=== PATIENT | male | born 1985 | race Asian ===

== ENCOUNTER 2017-09-20 14:08 | Emergency (ER) | payer SELFPAY ==
[2017-09-20] MEDS ORDERED: NS 1,000 ML IV ONE (14:21)
--- NOTE | 2017-09-20 14:27 | EDPHY ---
HPI/HX/ROS/PE/MDM Narrative: CHIEF COMPLAINT: Chest pain HPI: This patient is a Lao-speaking 32 year old male arriving via EMS complaining of abdominal pain and a transient alteration of awareness beginning after lunch today. Following lunch, he returned to work and began to feel like his mind was blank, and he could not remember anything. He went to his animal husbandry manager to see if he could go home, and his animal husbandry manager referred him to the emergency department. The patient suspects there may have been something unusual in his lunch. He currently feels his mind is returning to normal, but complains of a burning sensation in his abdomen. He denies having similar symptoms in the past. He denies marijuana consumption. HPI obtained by Lao phone per diem interpreter. REVIEW OF SYSTEMS: Aside from elements discussed in the HPI, a comprehensive 10-point review of systems was reviewed and is negative. PMH: Denies. SOCIAL HISTORY: Lao-speaking. Originally from [facility]. Works in [employer]. PHYSICAL EXAM: General:Patient is alert, in no acute distress. ENT:Eyes are normal to inspection. ENT inspection normal. Neck: Normal inspection. Full range of motion. Respiratory:No respiratory distress. Breath sounds normal bilaterally. Cardiovascular: Regular tachycardia. Strong peripheral pulses. Normal cap refill. Abdomen:The abdomen is nontender to palpation. There are no peritoneal signs. There are normal bowel sounds. Back: Normal to inspection. No tenderness to palpation. Skin: Normal color. No rash. Warm and dry. Extremities: Normal appearance. Full range of motion. Neuro: Oriented x3. Normal motor function. Normal sensory function. ED Course: 32 year old male presents with burning abdominal pain, a sensation of altered awareness, and reported chest pain. Exam reveals regular tachycardia. Plan for EKG, labs including CBC, chemistries, Troponin, and tox screen. EKG was ordered and interpreted by myself. Please see [employer] system for official reading. Sinus tachycardia. 15:50 Reviewed laboratory results. Tox screen is positive for marijuana. Chemistries and troponin pending at this time. Troponin negative. Plan to discharge home in good condition. Follow up and return precautions discussed. The patient is comfortable with this plan. MDM: This patient presents with altered mental status that seemed very suspicious for marijuana ingestion. This theory was confirmed by utox, and patient now states that he inadvertently ate a brownie. I see no signs of other medical emergency. - Data Points Laboratory Results: Laboratory Results 09/20/17 15:30 09/20/17 15:30 09/20/17 09/20/17 09/20/17 15:30 15:30 15:30 WBC 12.15 10^3/uL H 10^3/uL (3.80-9.50) RBC 5.21 10^6/uL 10^6/uL (4.40-6.38) Hgb 16.5 g/dL g/dL (13.7-17.5) Hct 47.4 % % (40.0-51.0) MCV 91.0 fL fL (81.5-99.8) MCH 31.7 pg pg (27.9-34.1) MCHC 34.8 g/dL g/dL (32.4-36.7) RDW 12.7 % % (11.5-15.2) Plt Count 166 10^3/uL 10^3/uL (150-400) MPV 9.9 fL fL (8.7-11.7) Neut % (Auto) 86.4 % H % (39.3-74.2) Lymph % (Auto) 7.6 % L % (15.0-45.0) Merrick % (Auto) 5.0 % % (4.5-13.0) Eos % (Auto) 0.6 % % (0.6-7.6) Baso % (Auto) 0.2 % L % (0.3-1.7) Nucleat RBC Rel Count 0.0 % % (0.0-0.2) Absolute Neuts (auto) 10.49 10^3/uL H 10^3/uL (1.70-6.50) Absolute Lymphs (auto) 0.92 10^3/uL L 10^3/uL (1.00-3.00) Absolute Monos (auto) 0.61 10^3/uL 10^3/uL (0.30-0.80) Absolute Eos (auto) 0.07 10^3/uL 10^3/uL (0.03-0.40) Absolute Basos (auto) 0.03 10^3/uL 10^3/uL (0.02-0.10) Absolute Nucleated RBC 0.00 10^3/uL 10^3/uL (0-0.01) Immature Gran % 0.2 % % (0.0-1.1) Immature Gran # 0.03 10^3/uL 10^3/uL (0.00-0.10) Sodium 144 mEq/L mEq/L (134-144) Potassium 3.7 mEq/L mEq/L (3.5-5.2) Chloride 107 mEq/L mEq/L (97-110) Carbon Dioxide 22 mEq/l mEq/l (22-31) Anion Gap 15 mEq/L mEq/L (8-16) BUN 12 mg/dL mg/dL (7-23) Creatinine 1.0 mg/dL mg/dL (0.7-1.3) Estimated GFR > 60 Glucose 112 mg/dL H mg/dL (70-100) Calcium 8.9 mg/dL mg/dL (8.5-10.4) Troponin I < 0.012 ng/mL ng/mL (0.000-0.034) Urine Opiates Screen NEGATIVE (NEGATIVE) Urine Barbiturates NEGATIVE (NEGATIVE) Ur Phencyclidine Scrn NEGATIVE (NEGATIVE) Ur Amphetamine Screen NEGATIVE (NEGATIVE) U Benzodiazepines Scrn NEGATIVE (NEGATIVE) Urine Cocaine Screen NEGATIVE (NEGATIVE) U Marijuana (THC) Screen NON-NEGATIVE H (NEGATIVE) Medications Given: Discontinued Medications Sodium Chloride (Ns) 1,000 mls @ 0 mls/hr IV EDNOW ONE; Wide Open PRN Reason: Protocol Stop: 09/20/17 14:22 Last Admin: 09/20/17 14:34 Dose: 1,000 mls General Time Seen by Provider: 09/20/17 14:09 Initial Vital Signs: Initial Vital Signs Heart Rate 106 H 09/20/17 15:10 Respiratory Rate 20 09/20/17 15:10 Blood Pressure 132/76 H 09/20/17 15:10 O2 Sat (%) 99 09/20/17 15:10 O2 Delivery Mode Room Air Departure - Departure Disposition: Home, Routine, Self-Care Clinical Impression: Cannabis intoxication Condition: Good Instructions: Cannabis Abuse (ED) Additional Instructions: 1. The attached instructions do not necessarily apply specifically to your situation today, but do review possible side effects or health concerns related to marijuana use. 2. Follow up with your primary care provider for symptoms unresolved in the next 1-2 days. 3. Return to the emergency department for increased chest pain, shortness of breath, uncontrollable vomiting or diarrhea, fever, fainting, or other worsening of condition. Referrals: Unknown,Unknown [Unknown] - As per Instructions Ingris Oreilly MD [Medical Doctor] - As per Instructions Report Scribed for: Mehul Morris Report Scribed by: Patricia Gunderson Date of Report: 09/20/17 Time of Report: 14:23 Physician Review and Approval Statement: Portions of this note were transcribed by an ED scribe. I personally performed the history, physical exam, and medical decision making; and confirm the accuracy of the information in the transcribed note.
--- NOTE | 2017-09-20 14:34 | CPEKG ---
Heart Rate: 123 RR Interval: 488 P-R Interval: 156 QRSD Interval: 74 QT Interval: 244 QTC Interval: 349 P [place]: 40 QRS [place]: 45 T Wave [place]: 16 EKG Severity - BORDERLINE ECG - EKG Impression: SINUS TACHYCARDIA EKG Impression: BORDERLINE T WAVE ABNORMALITIES Electronically Signed By: Mehul Morris 20-Sep-2017 21:51:52
[2017-09-20 15:11] VITALS: BP 132/76; PULSE 106; RESP 20; O2SAT 99
[2017-09-20 15:12] VITALS: TEMP 98.2
[2017-09-20 15:44] LABS: % IMMATURE GRANULYOCYTES 0.2 % (0.0-1.1); ABSOLUTE IMMATURE GRANULOCYTES 0.03 10^3/uL (0.00-0.10); ADD DIFF? NO; ADD MORPH? NO; ADD SCAN? NO; ATYPICAL LYMPHOCYTE FLAG 0 (0-99); FRAGMENT RBC FLAG 0 (0-99); HEMATOCRIT 47.4 % (40.0-51.0); HEMOGLOBIN 16.5 g/dL (13.7-17.5); LEFT SHIFT FLG 0 (0-99); LIPEMIA HEMOLYSIS FLAG 90 (0-99); MEAN CELL HEMOGLOBIN 31.7 pg (27.9-34.1); MEAN CELL HEMOGLOBIN CONCENTR. 34.8 g/dL (32.4-36.7); MEAN PLATELET VOLUME 9.9 fL (8.7-11.7); PLATELET CLUMPS FLAG 0 (0-99); PLATELET COUNT 166 10^3/uL (150-400); RED BLOOD CELL COUNT 5.21 10^6/uL (4.40-6.38); RED CELL DISTRIBUTION WIDTH 12.7 % (11.5-15.2)
[2017-09-20 15:58] LABS: ANION GAP 15 mEq/L (8-16); CALCIUM 8.9 mg/dL (8.5-10.4); CARBON DIOXIDE 22 mEq/l (22-31); CHLORIDE 107 mEq/L (97-110); GLOMERULAR FILTRATION RATE > 60; GLUCOSE 112 mg/dL (70-100); POTASSIUM 3.7 mEq/L (3.5-5.2); SODIUM 144 mEq/L (134-144)
[2017-09-20 16:09] LABS: TROPONIN I < 0.012 ng/mL (0.000-0.034)
== END 2017-09-20 16:31 | disposition home or self-care (01) ==
LOC: EDBD 14:08
DX: F12.929 Cannabis use, unspecified with intoxication, unspecified (principal); E86.9 Volume depletion, unspecified
CPT/HCPCS: 80305